=== PATIENT | male | born 1980 | race Caucasian/White ===

== ENCOUNTER 2017-08-21 19:59 | Emergency (ER) | payer SELFPAY ==
[2017-08-21] MEDS ORDERED: Ketorolac Tromethamine 30 MG/ML VIAL ONE (20:30)
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
== END 2017-08-21 21:53 | disposition home or self-care (01) ==
LOC: ERS 19:59
DX: S50.01XA Contusion of right elbow, initial encounter (principal); S80.211A Abrasion, right knee, initial encounter; E78.5 Hyperlipidemia, unspecified; I10 Essential (primary) hypertension; F41.9 Anxiety disorder, unspecified; F32.9 Major depressive disorder, single episode, unspecified; Z79.899 Other long term (current) drug therapy; W17.89XA Other fall from one level to another, initial encounter
CPT/HCPCS: 96372; J1885

== ENCOUNTER 2018-07-20 07:20 | Emergency (ER) | payer SELFPAY | END 2018-07-20 08:32 | disposition left against medical advice (07) | LOC: ERS 07:20 | DX: Z53.21 Procedure and treatment not carried out due to patient leaving prior to being seen by health care provider (principal) ==